=== PATIENT | male | born 1965 | race Caucasian/White ===

== ENCOUNTER 2019-08-26 08:04 | Emergency (ER) | payer OTHER, SELFPAY ==
--- NOTE | ~2019-08-26 | XR_ITS ---
EXAMINATION: XR knee LT min 4V DATE: 08/26/2019 09:14 INDICATION: Left knee pain. TECHNIQUE: 5 views of left knee were obtained. COMPARISON: None. FINDINGS: Bone alignment is normal. No fracture. There is mild tricompartmental osteoarthritis. There is an enthesophyte at the proximal attachment of medial collateral ligament. There is a small knee j oint effusion. IMPRESSION: 1. Mild left knee osteoarthritis. 2. Small left knee joint effusion. Reviewed, dictated and finalized at location A. [facility] [address]
[2019-08-26 08:07] VITALS: BP 153/78; PULSE 83; RESP 18; TEMP 36.7; O2SAT 98
--- NOTE | 2019-08-26 08:25 | ED.GENADULT ---
HPI - General Adult General Chief complaint: Extremity Injury, Lower Stated complaint: left knee pain Time Seen by Provider: 08/26/19 08:24 Source: patient Mode of arrival: ambulatory Limitations: no limitations History of Present Illness HPI narrative: A 54 y/o male pt presents to the ED, with c/o lt knee pain that began yesterday. 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 He states that throughout the night his pain worsened and he began to notice swelling. He reports alternating with ice packs and a heating pad and he slept with a pillow under his lt leg. Pt notes that when he moves his lt lower extremity he has pain and he can feel a slipping or popping sensation in his knee. MD complaint: Lt Knee pain Onset (ago): day(s) (1) Location: lower extremity (lt knee) Quality: burning Pain Consistency: constant Relieving factors: none and movement Treatments prior to arrival: cold therapy and heat therapy Related Data Home Medications Medication Instructions Recorded Confirmed No Home Medications 08/26/19 08/26/19 Allergies Allergy/AdvReac Type Severity Reaction Status Date / Time morphine Allergy Mild N&V Verified 08/26/19 08:12 nalbuphine Allergy Unknown Unknown Verified 08/26/19 08:12 NALBUPHINE HCL Allergy Severe CARDIAC Uncoded 08/26/19 08:12 ARREST Review of Systems Review of Systems: All systems reviewed & are unremarkable except as noted in HPI and below Musculoskeletal: Musculoskeletal: Reports arthralgias (lt knee) and Reports joint swelling (lt knee) [facility] Past Medical History Medical History (Updated 08/26/19 @ 10:09 by Alisha SaenzSepaton) Arthritis GERD (gastroesophageal reflux disease) Seizures Surgical History Surgical History (Updated 08/26/19 @ 10:07 by Alisha SaenzSepaton) History of shoulder surgery rt shoulder reconstruction Hx of repair of rotator cuff lt shoulder Family History Family History (Updated 02/19/16 @ 23:21 by DOCTOR UNKNOWN) Sibling Family history of neuropathy Patient's sister is in good health Patient's brother is in good health Father Family history of neuropathy Hypertension Social History Social History (Updated 08/26/19 @ 10:09 by Alisha SaenzSepaton) Smoking packs per day: 1 Smoking cigarettes per day: 20.0 Smoking status: Current every day smoker Alcohol intake: never Gender identity (if verbalized by the patient): Male Comments Pt does not have a PCP at this time. Exam Const: General: cooperative, no acute distress and alert Nutritional Appearance: well nourished Orientation/consciousness: patient oriented x3 Limitations: no limitations Resp: Effort & Inspection: normal respiratory effort Auscultation: clear to auscultation bilaterally Cardio: Rate: regular rate Rhythm: regular rhythm Heart sounds: no murmurs Peripheral pulses: dorsalis pedis present bilateral Skin: General skin exam: normal color Neuro: General: patient oriented x3 Cognition (Neuro): normal cognition Speech: normal speech Extrem: General: normal to inspection, full ROM and no clubbing, cyanosis or edema Left lower extremity: knee Details: tenderness (tibial plateau) Location: of the medial joint line; no other (effusion) Psych: Mental Status: mental status grossly normal Affect: normal affect Attitude: cooperative Course Course Emergency Course: Patient advised importance of primary care or orthopedic follow-up for further evaluation of his knee pain if he is not improving. Cannot exclude possibility of cartilage or meniscus injury. Vital Signs Vital signs: Vital Signs Temperature 98.1 F 08/26/19 08:07 Pulse Rate 83 08/26/19 08:07 Respiratory Rate 18 08/26/19 08:07 Blood Pressure 153/78 H 08/26/19 08:07 Pulse Oximetry 98 08/26/19 08:07 Temperature 98.1 F 08/26/19 08:07 Pulse Rate 83 02
== END 2019-08-26 16:50 | disposition home or self-care (01) ==
PROVIDERS: Emergency Provider Emergency Medicine
DX: M25.562 Pain in left knee (principal); M19.90 Unspecified osteoarthritis, unspecified site; K21.9 Gastro-esophageal reflux disease without esophagitis; F17.210 Nicotine dependence, cigarettes, uncomplicated
CPT/HCPCS: 73564; 99283